=== PATIENT | female | born 1965 | race African-American/Black ===

== ENCOUNTER 2024-02-17 16:41 | Emergency (ER) | payer BC ==
[~2024-02-17] VITALS: Ht 160 cm; Wt 104.0 kg
[2024-02-17 16:52] VITALS: O2SAT 100
[2024-02-17 17:25] VITALS: TEMP 98.1
[2024-02-17 17:33] LABS: BASOPHILS % 1.4 % (0.0-2.0); EOSINOPHILS % 6.1 % (0.0-5.0); HEMATOCRIT. 40.3 % (36.0-48.0); HEMOGLOBIN. 13.2 g/dL (12.0-16.0); LYMPHOCYTES % 42.8 % (20.0-50.0); MEAN CORPUSCULAR HEMOGLOBIN 29.4 pg (28.0-32.0); MEAN CORPUSCULAR HGB CONC 32.8 g/dL (31.0-37.0); MEAN CORPUSCULAR VOLUME 89.5 fL (81.0-99.0); MEAN PLATELET VOLUME 9.6 fl (7.4-10.4); MONOCYTES % 6.9 % (2.0-8.0); NEUTROPHILS % 42.8 % (40.0-76.0); PLATELET 259 x1000/uL (130-400); RED CELL DISTRIBUTION WIDTH 13.6 % (11.6-14.6); WHITE BLOOD COUNT 6.9 x1000/uL (4.5-11.0)
[2024-02-17 17:39] LABS: CHLORIDE 103 mEq/L (98-107); POTASSIUM 3.7 mEq/L (3.5-5.1); SODIUM 139 mEq/L (136-145)
[2024-02-17 17:40] LABS: CARBON DIOXIDE 29 mEq/L (21-32)
[2024-02-17 17:41] LABS: CALCIUM 9.8 mg/dL (8.7-10.4)
[2024-02-17 17:45] LABS: CREATININE 0.9 mg/dL (0.6-1.0); GLUCOSE 155 mg/dL (70-105)
[2024-02-17 17:46] LABS: UREA NITROGEN BLOOD 11 mg/dL (9-23)
[2024-02-17 17:47] LABS: ALANINE AMINOTRANSFERASE 24 IU/L (10-49); ALBUMIN 4.3 g/dL (3.2-4.8); ASPARTATE AMINOTRANSFERASE 24 IU/L (<34)
[2024-02-17 17:48] LABS: BILIRUBIN DIRECT 0.1 mg/dL (<=3.0); BILIRUBIN TOTAL 0.5 mg/dL (0.1-1.0); PROTEIN TOTAL 7.6 g/dL (6.0-8.3)
[2024-02-17 17:53] LABS: TROPONIN I HIGH SENSITIVITY < 4 ng/L (3.0-34)
[2024-02-17 20:46] LABS: TROPONIN I HIGH SENSITIVITY < 4 ng/L (3.0-34)
[2024-02-17 20:58] VITALS: BP 121/76; PULSE 81; RESP 14
== END 2024-02-17 20:58 | disposition home or self-care (01) ==
LOC: ER 16:41
DX: R07.89 Other chest pain (principal); I10 Essential (primary) hypertension; Z98.890 Other specified postprocedural states
CPT/HCPCS: 36415; 71045; 80048; 80076; 84484; 85025; 93005; 99285